=== PATIENT | female | born 1985 | race Caucasian/White ===

== ENCOUNTER 2016-12-06 08:34 | Emergency (ER) | payer MEDICAID ==
[2016-12-06 10:27] VITALS: BP 112/69
== END 2016-12-06 10:27 | disposition home or self-care (01) ==
LOC: ED 08:34
DX: J06.9 Acute upper respiratory infection, unspecified (principal)

== ENCOUNTER 2017-10-08 16:52 | Emergency (ER) | payer MEDICAID ==
[~2017-10-08] VITALS: Ht 160 cm; Wt 69.8 kg
[2017-10-08 17:03] VITALS: Ht 160 cm; Wt 69.8 kg
[2017-10-08 18:16] VITALS: BP 131/783
== END 2017-10-08 18:48 | disposition home or self-care (01) ==
LOC: ED 16:52
DX: S61.212A Laceration without foreign body of right middle finger without damage to nail, initial encounter (principal); W25.XXXA Contact with sharp glass, initial encounter; Y93.89 Activity, other specified; Y92.89 Other specified places as the place of occurrence of the external cause; Y99.8 Other external cause status
CPT/HCPCS: Q0092

== ENCOUNTER 2018-11-02 10:27 | Emergency (ER) | payer MEDICAID ==
[~2018-11-02] VITALS: Ht 165.1 cm; Wt 65.8 kg
[2018-11-02 10:29] VITALS: Ht 165.1 cm; Wt 65.8 kg
[2018-11-02 11:30] LABS: BASOPHIL % 0.6 % (0-2); PLATELET COUNT 227 x10^3mcL (130-400); RED CELL DISTRIBUTION WIDTH 13.5 % (11.5-14.5)
[2018-11-02 11:53] VITALS: BP 101/60
== END 2018-11-02 11:53 | disposition home or self-care (01) ==
LOC: ED 10:27
PROVIDERS: Emergency Medicine
DX: R53.83 Other fatigue (principal); I95.9 Hypotension, unspecified
CPT/HCPCS: 36415

== ENCOUNTER 2019-01-09 11:06 | Emergency (ER) | payer MEDICAID ==
[~2019-01-09] VITALS: Ht 157.5 cm; Wt 65.3 kg
[2019-01-09 11:25] VITALS: Ht 157.5 cm; Wt 65.3 kg
[2019-01-09 13:01] VITALS: BP 110/68
== END 2019-01-09 12:50 | disposition home or self-care (01) ==
LOC: ED 11:06
DX: L03.011 Cellulitis of right finger (principal); B35.1 Tinea unguium

== ENCOUNTER 2019-03-11 10:21 | Emergency (ER) | payer MEDICAID ==
[~2019-03-11] VITALS: Ht 154.9 cm; Wt 66.2 kg
[2019-03-11 10:55] VITALS: Ht 154.9 cm; Wt 66.2 kg
[2019-03-11 13:51] VITALS: BP 101/75
== END 2019-03-11 13:51 | disposition home or self-care (01) ==
LOC: ED 10:21
DX: J06.9 Acute upper respiratory infection, unspecified (principal)
CPT/HCPCS: 87804

== ENCOUNTER 2020-01-21 11:06 | Emergency (ER) | payer MEDICAID ==
[~2020-01-21] VITALS: Ht 167.6 cm; Wt 71.7 kg
[2020-01-21 11:24] VITALS: Ht 167.6 cm; Wt 71.7 kg
[2020-01-21 12:50] VITALS: BP 113/62
== END 2020-01-21 13:00 | disposition home or self-care (01) ==
LOC: ED 11:06
DX: H11.32 Conjunctival hemorrhage, left eye (principal); S05.02XA Injury of conjunctiva and corneal abrasion without foreign body, left eye, initial encounter; W22.03XA Walked into furniture, initial encounter; Y93.89 Activity, other specified; Y92.89 Other specified places as the place of occurrence of the external cause; Y99.8 Other external cause status